=== PATIENT | female | born 1975 | race Caucasian/White ===

== ENCOUNTER 2016-11-29 19:26 | Emergency (ER) | payer MEDICARE, OTHER ==
[2016-11-29] MEDS ORDERED: ONDANSETRON HCL/PF 4 MG/ 2ML VIAL IVP ONE (19:40)
[2016-11-29] MEDS ORDERED: HALOPERIDOL LACTATE 5 MG/ML VIAL IM ONE (19:40)
[2016-11-29] MEDS ORDERED: KETOROLAC TROMETHAMINE 30 MG/1ML VIAL IVP ONE (19:40)
[2016-11-29] MEDS ORDERED: 0.9 % SODIUM CHLORIDE 1,000 ML IV ONE (19:49)
[2016-11-29] MEDS ORDERED: 0.9 % SODIUM CHLORIDE 1,000 ML IV SCH (20:00)
[2016-11-29 22:43] VITALS: BP 122/79
--- NOTE | 2016-11-30 04:15 | ED Physician Documentation ---
Headache - HISTORIAN Historian: patient - HPI Stated Complaint: Severe HIGH Chief Complaint: Headache Additional Information: x 1 day, photo and phonosensativity, known migraines, similar pain Onset: days ago (1) Timing: abrupt New Gradual Onset: Yes Exposure To: none Severity: severe Quality: similar to previous, pain, throbbing Associated Symptoms: sensitivity to light Preceding Symptoms: denies: visual disturbance, scotoma Exacerbated By: light, noise - ROS NEURO/PSYCH: denies: confusion, anxiety, depression, fainting EYES/ENT: denies: sore throat, difficulty swallowing, sinus pain, drainage CVS/RESP: none GI/: denies: abdominal pain, diarrhea, problems urinating, incontinence MS/SKIN/LYMPH: denies: muscle aches, back pain, rash, skin lesions, swollen glands all systems neg except as marked: Yes - PAST HX Medical History: other (breast cancer) Surgical History: no surgical history Immunizations: referred to PCP Allergies/Adverse Reactions: Allergies Allergy/AdvReac Type Severity Reaction Status Date / Time bupropion HCl Allergy Verified 11/29/16 20:33 [From Wellbutrin] buspirone HCl [From BuSpar] Allergy Verified 11/29/16 20:33 Penicillins Allergy Verified 11/29/16 20:33 pregabalin [From Lyrica] Allergy Verified 11/29/16 20:33 Home Medications: Ambulatory Orders Medication Instructions Recorded Dexamethasone [Decadron] 1 tab PO DIRECTED 08/19/16 Hydrocodone/Acetaminophen 1 tab PO DIRECTED 08/19/16 [Hydrocodon-Acetaminophen 5-325] LORazepam [Ativan] 0.5 mg PO Q4H 08/19/16 Loratadine [Claritin] 10 mg PO D 08/19/16 Gabapentin 11/29/16 - SOCIAL HX Smoking History: cigarettes Alcohol Use: none Drug Use: none - Family HX Family History: none - VITAL SIGNS Vital Signs: Vital Signs Temp Pulse Resp BP Pulse Ox 97.5 F L 80 18 122/79 98 11/29/16 21:20 11/29/16 21:20 11/29/16 21:20 11/29/16 21:20 11/29/16 19:27 - REVIEWED ASSESSMENTS Nursing Assessment Reviewed: Yes Vitals Reviewed: Yes Progress - Results/Orders Results/Orders: no testing ordered - Progress Progress: Pt. given 10 mg Haldol im, 30 mg toradol ivp, 1 liter NS in ER. Critical Care Note - Critical Care Note Total Time (mins): 0 ED Results Lab/Radiology - Lab Results Lab Results: none taken - Radiology Radiology Impressions: none taken - Orders Orders: ED Orders Category Date Time Status Place Saline Lock/IV Now Care 11/29/16 19:40 Active 0.9 % Sodium Chloride [Normal Saline] 1,000 ml Med 11/29/16 20:00 Discontinued IV .Q1H 0.9 % Sodium Chloride [Normal Saline] 1,000 ml Med 11/29/16 19:49 Discontinued IV .STK-MED Haloperidol Lactate [Haldol] Med 11/29/16 19:40 Discontinued 10 mg IM NOW ONE Ketorolac Tromethamine [Toradol] Med 11/29/16 19:40 Discontinued 30 mg IVP NOW ONE Ondansetron HCl/Pf [Zofran 4 mg/2 ml] Med 11/29/16 19:40 Discontinued 8 mg IVP NOW ONE Headache Physical Exam - EXAM General Appearance: moderate distress EENT: no facial swelling, eyes nml inspection, PERRL, photophobia, nml ENT, pharynx nml. No: tender temporal artery, pain over sinuses Neck: normal inspection, thyroid normal, supple Respiratory: no resp distress, chest non-tender, breath sounds normal CVS: reg. rate & rhythm, heart sounds nml Abdomen: non-tender, no organomegaly, nml bowel sounds, no distention Skin: color nml, no rash Extremitites: non-tender, normal range of motion, no evidence of injury, no edema - NEURO/PSYCH Higher Functions: alert, oriented x3 Cranial: nml as tested, no evidence of acute CVA Cerebellar: nml as tested Sensorimotor: motor nml, sensation nml Discharge Clincal Impression: Migraine Qualifiers: Migraine type: unspecified Status migrainosus presence: without status migrainosus Intractability: intractable Qualified Code(s): G43.919 - Migraine, unspecified, intractable, without status migrainosus Referrals: Primary Doctor,No [Primary Care Provider] - 2 Days Home Medications: Ambulatory Orders Dexamethasone [Decadron] 1 tab PO DIRECTED 08/19/16 Hydrocodone/Acetaminophen [Hydrocodon-Acetaminophen 5-325] 1 tab PO DIRECTED 08/19/16 LORazepam [Ativan] 0.5 mg PO Q4H 08/19/16 Loratadine [Claritin] 10 mg PO D 08/19/16 Gabapentin 11/29/16 Comments: discharged home in stable and vastly improved condition with script for fioricet 1 p.o. qid prn headache, #10 no refill Condition: Stable Disposition: 01 HOME, SELF-CARE Decision to Admit: NO Decision Time: 21:50
== END 2016-11-29 21:20 | disposition home or self-care (01) ==
LOC: ED 19:26
DX: G43.919 Migraine, unspecified, intractable, without status migrainosus (principal)
CPT/HCPCS: J1630; J1885; J2405; J7030; 96372; 96374; 96375; 99284; S1016

== ENCOUNTER 2017-02-14 09:25 | Outpatient (CLI) | payer MEDICARE, OTHER ==
[2017-02-15 07:51] LABS: ADENOVIRUS F 40/41 Not Detected (Not Detected); ASTROVIRUS Not Detected (Not Detected); C. DIFFICILE (TOXIN A/B) Not Detected (Not Detected); CRYPTOSPORIDIUM Not Detected (Not Detected); CYCLOSPORA CAYETANENSIS Not Detected (Not Detected); ENTAMOEBA HISTOLYTICA Not Detected (Not Detected); GIARDIA LAMBLIA Not Detected (Not Detected); ROTAVIRUS A Not Detected (Not Detected); SAPOVIRUS Not Detected (Not Detected); VIBRIO CHOLERAE Not Detected (Not Detected)
== END 2017-02-14 09:26 ==
LOC: LAB 09:25
PROVIDERS: ATTEND Family Medicine
DX: R19.7 Diarrhea, unspecified (principal)
CPT/HCPCS: 87507

== ENCOUNTER 2017-12-20 14:34 | Emergency (ER) | payer MEDICARE, OTHER ==
[2017-12-20] MEDS: ASPIRIN 81 MG CHEW TAB PO ONE (14:52)
[2017-12-20 15:00] LABS: EOSINOPHILS % 5.7 % (0.0-6.8); MEAN CORPUSCULAR HEMOGLOBIN 29.7 pg (28.0-34.0); MEAN CORPUSCULAR VOLUME 87.4 fl (80.0-100.0); MONOCYTES % 5.9 % (0.0-11.0); NEUTROPHILS # 3.2 # k/uL (1.4-7.7)
[2017-12-20 15:20] LABS: eGFR (African) > 60; eGFR (Non-African) > 60
--- NOTE | 2017-12-20 17:28 | ED Physician Documentation ---
Neck Injury/Pain - HISTORIAN Historian: patient - HPI Stated Complaint: Shoulder Pain Radiating to Neck Chief Complaint: Neck Pain Onset: days ago (2-3) Duration: continues in ED Recent Injury: No Where: home Other Injuries: other (none) Severity: moderate Quality: sharp Associated Symptoms: fever, chills, other (cough) Exacerbated By: nothing Relieved By: nothing Further Comments: no - ROS NEURO/PSYCH: denies: difficulty with speech, anxiety, depression EYES/ENT: none CVS/RESP: chest pain CONST: no problems GI/: nausea MS/SKIN/LYMPH: none - PAST HX Past History: other (breastca) Surgeries/Procedures: other (mastectomy) Allergies/Adverse Reactions: Allergies Allergy/AdvReac Type Severity Reaction Status Date / Time bupropion HCl Allergy Verified 12/20/17 14:50 [From Wellbutrin] buspirone HCl [From BuSpar] Allergy Verified 12/20/17 14:50 clindamycin Allergy Verified 12/20/17 14:50 Penicillins Allergy Verified 12/20/17 14:50 pregabalin [From Lyrica] Allergy Verified 12/20/17 14:50 Home Medications: Ambulatory Orders Medication Instructions Recorded Hydrocodone/Acetaminophen 1 tab PO DIRECTED 08/19/16 [Hydrocodon-Acetaminophen 5-325] LORazepam [Ativan] 0.5 mg PO Q4H 08/19/16 Loratadine [Claritin] 10 mg PO D 08/19/16 Gabapentin 11/29/16 - SOCIAL HX Smoking History: non-smoker Alcohol Use: none Drug Use: none - FAMILY HX Family History: no significant history - VITAL SIGNS Vital Signs: Vital Signs Temp Pulse Resp BP Pulse Ox 97 F L 84 16 115/74 97 12/20/17 14:35 12/20/17 18:28 12/20/17 18:28 12/20/17 18:28 12/20/17 18:28 - REVIEWED ASSESSMENT Nursing Assessment Reviewed: Yes Vitals Reviewed: Yes Progress - Results/Orders Results/Orders: trop, cmp, cbc, ekg ordered - Progress Progress: pt. given norflex 30 mg ivp, rocephin 1 gram im, toradol 30 mg iv, asa 325 mg p.o. in er Critical Care Note - Critical Care Note Total Time (mins): 0 ED Results Lab/Radiology - Lab Results Lab Results: Lab Results 12/20/17 12/20/17 12/20/17 14:55 14:55 14:55 WBC 4.90 K/ul K/ul (4.00-12.00) RBC 5.03 M/ul M/ul (3.90-5.20) Hgb 14.9 g/dL g/dL (12.0-16.0) Hct 44.0 % % (34.5-46.5) MCV 87.4 fl fl (80.0-100.0) MCH 29.7 pg pg (28.0-34.0) MCHC 34.0 g/dL g/dL (30.0-36.0) RDW 13.0 % % (11.3-14.3) Plt Count 170 K/mm3 K/mm3 (130-400) Neut % (Auto) 66.1 % % (39.0-79.0) Lymph % (Auto) 19.1 % % (16.0-50.0) Sebastian % (Auto) 5.9 % % (0.0-11.0) Eos % (Auto) 5.7 % % (0.0-6.8) Baso % (Auto) 1.0 (0.0-1.5) Neut # (Auto) 3.2 # k/uL # k/uL (1.4-7.7) Lymph # (Auto) 0.9 # k/uL # k/uL (0.6-4.0) Sebastian # (Auto) 0.3 # k/uL # k/uL (0.0-0.9) Eos # (Auto) 0.3 # k/uL # k/uL (0.0-0.6) Baso # (Auto) 0.0 # k/uL # k/uL (0.0-0.5) Reactive Lymphs % 2.3 % % (0.0-5.0) Reactive Lymphs # 0.1 # k/uL # k/uL (0.0-0.8) Sodium 141 mmol/L mmol/L (136-145) Potassium 3.8 mmol/L mmol/L (3.5-5.1) Chloride 103 mmol/L mmol/L (98-107) Carbon Dioxide 27 mmol/L mmol/L (22-30) BUN 8 mg/dL mg/dL (7-17) Creatinine 0.90 mg/dL mg/dL (0.52-1.04) Estimated Creat Clear 127 Est GFR ( Amer) > 60 (60 - ) Est GFR (Non-Af Amer) > 60 (60 - ) Glucose 119 mg/dL H mg/dL (74-106) Calcium 8.8 mg/dL mg/dL (8.4-10.2) Total Bilirubin 0.6 mg/dL mg/dL (0.2-1.3) AST 24 U/L U/L (15-46) ALT 37 U/L U/L (13-69) Alkaline Phosphatase 95 U/L U/L (38-126) Troponin I < 0.03 ng/mL L ng/mL (0.03-0.06) Total Protein 6.9 g/dL g/dL (6.3-8.2) Albumin 4.0 g/dL g/dL (3.5-5.0) - Radiology Radiology Impressions: ct chest positive left upper lob infiltrate - Orders Orders: ED Orders Category Date Time Status Continuous EKG monitoring Q30M Care 12/20/17 14:51 Active Continuous Pulse Oximetry Q30M Care 12/20/17 14:[address] IV Lock 1T Care 12/20/17 14:[address] C-SPINE W/O CONTRAST Stat Exams 12/20/[address] CHEST W/O CONTRAST Stat Exams 12/20/17 Completed CBC/PLATELET/DIFF Routine Lab 12/20/17 14:55 Completed CMP Routine Lab 12/20/17 14:55 Completed TROPONIN I (cTnI) Stat Lab 12/20/17 14:55 Completed Aspirin Med 12/20/17 14:51 Discontinued 324 mg PO NOW ONE Ketorolac Tromethamine [Toradol] Med 12/20/17 17:13 Discontinued 30 mg IVP NOW ONE Lidocaine 1% 5ml(IM or SUTURE) [Xylocaine] Med 12/20/17 17:38 Discontinued 50 mg .ROUTE .STK-MED ONE Orphenadrine Citrate [Norflex] Med 12/20/17 17:15 Discontinued 30 mg IV NOW ONE cefTRIAXone SODIUM [Rocephin] Med 12/20/17 17:38 Discontinued 1 gm .ROUTE .STK-MED ONE cefTRIAXone SODIUM [Rocephin] Med 12/20/17 18:00 Discontinued 1 gm IM QD EKG WITH COMPARISON Stat Ther 12/20/17 14:51 Ordered Neck Injury/Pain - Physical Exam General Appearance: alert, mild distress EENT: nml ENT inspection, pharynx nml Neck: thyroid nml, other (tenderness left sided scalene muscles, anterior pectoral muscle and superior trapezius muscle) Nexus Criteria: Nexus criteria neg Back: muscle spasm (upper trapezius left and pectoral left) Respiratory: tenderness (over left pectoral area), decreased breath sounds ( left upper lung miller) CVS: heart sounds nml, bilateral pulses nml Abdomen: non-tender, no organomegaly, nml bowel sounds, no distention Skin: warm/dry, normal color Extremities: non-tender, normal range of motion, no evidence of injury, no edema Neuro/Psych: oriented x3, CN's nml as tested, sensation nml, motor nml, mood/ affect nml, coal 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 daily, Parafon Forte DSC 500 mg 1 p.o. qid and Meloxicam 1 p.o. bid. Condition: Stable Disposition: 01 HOME, SELF-CARE Decision to Admit: NO Decision Time: 17:28
[2017-12-20] MEDS ORDERED: Lidocaine 1% 5ml(IM or SUTURE)(PAIN CLINIC) ONE (17:38)
[2017-12-20] MEDS ORDERED: cefTRIAXone SODIUM 1 GM VIAL ONE (17:38)
[2017-12-20] MEDS: ORPHENADRINE CITRATE 60 MG/2ML IV ONE (17:44)
[2017-12-20] MEDS: KETOROLAC TROMETHAMINE 30 MG/1ML VIAL IVP ONE (17:44)
[2017-12-20] MEDS: cefTRIAXone SODIUM 1 GM VIAL IM SCH (17:44)
[2017-12-20 18:38] VITALS: BP 115/74
--- NOTE | 2017-12-20 19:07 | Diagnostic Imaging Report ---
SANA ESCALANTE [facility] [address] [facility] [address] [place], [place]. [address] Report Submission Date: Dec 20, 2017 4:35:23 PM HR ANALYST Patient Study Name: BERNARDA JACKSON Date: Dec 20, 2017 3:23:52 PM HR ANALYST Modality Type: CT\SR Gender: F Description: CT CHEST W/O C : 79 Institution: [facility] Physician: SANA ESCALANTE Examination: CT chest History: CT CHEST, NECK PAIN INTO SHOULDER AND CHEST SINCE 2016, POST MASTECTOMY SURGERY, WORSENING PAIN X1 WEEK, HX OF BREAST CANCER (Hx) / CHEST PAIN (DICOM Hx) Comparison exams: None available Technique: CT chest without contrast protocol Findings: Left greater than right apical parenchymal scarring with probable left apical infiltrate/consolidation. Posterior dependent atelectasis. Remaining lung pleura, parenchyma, and pulmonary vascularity are without irregularity. Anterior mediastinum and kathy are without gross mass or pathologic adenopathy: though sensitivity is reduced on a noncontrast exam. Thoracic aorta without evidence for aneurysm or peripheral atherosclerotic disease. Cardiac silhouette not enlarged. No pericardial effusion. Lower neck structures, upper abdominal organs, and osseous structures are without gross abnormality. Bilateral breast implants. Right-sided christa cath. Impression: Biapical parenchymal scarring with possible left apical infiltrate/ consolidation. No effusion. Electronically signed on Dec 20, 2017 4:35:23 PM HR ANALYST by: Crow CASTANO
--- NOTE | 2017-12-20 19:08 | Diagnostic Imaging Report ---
SANA ESCALANTE [address] [facility] [address] [place] [address]. [id number] Report Submission Date: Dec 20, 2017 4:16:46 PM BILLING CHECKER Patient Study Name: BERNARDA JACKSON Date: Dec 20, 2017 3:19:25 PM BILLING CHECKER Modality Type: CT\SR Gender: F Description: : 79 Institution: Physician: SANA ESCALANTE Examination: CT cervical spine History: CT C-SPINE, NECK PAIN INTO SHOULDER AND CHEST SINCE 2016, POST MASTECTOMY SURGERY, WORSENING PAIN X1 WEEK, HX OF BREAST CANCER (Hx) / NECK PAIN W/ HX OF BREAST CANCER (DICOM Hx) Comparison exams: None provided Technique: CT cervical spine axial imaging with sagittal and coronal reconstruction Findings: Sagittal reconstruction demonstrates normal height and alignment the cervical vertebral bodies. No anterior compression deformity. Few scattered osteophytes. Disc space narrowing C4/C5 and C5/C6. Coronal reconstruction does not demonstrate locked or perched facets. Mild atlantoaxial degenerative changes. Streak artifact from dental hardware. Apical parenchymal scarring. Axial imaging obtained from the skull base through T1. Lamina and pedicles are intact. No ossific density within the central canal. Mild scattered facet degenerative changes. Minimal narrowing of central canal and neural foramen at C4/C5 and C5/C6. No prevertebral soft tissue abnormality. Impression: Mid cervical degenerative changes. No evidence for compression fracture. If patient is experiencing neurologic symptoms, consider obtaining MRI to further evaluate. Electronically signed on Dec 20, 2017 4:16:46 PM BILLING CHECKER by: Crow CASTANO
== END 2017-12-20 17:52 | disposition home or self-care (01) ==
LOC: ED 14:34
DX: J18.1 Lobar pneumonia, unspecified organism (principal); M25.512 Pain in left shoulder
CPT/HCPCS: 71250; 72125; 80053; 84484; 85025; 93005; J0696; J1885; J2360; 96372; 96375; 99283; S1016

== ENCOUNTER 2019-08-18 15:13 | Emergency (ER) | payer MEDICARE, OTHER ==
--- NOTE | 2019-08-18 15:31 | ED Physician Documentation ---
General Adult - HISTORIAN Historian: patient - HPI Stated Complaint: mid back pain Chief Complaint: General Adult Additional Information: Patient presents to ED with a 7 day history of mid back pain after putting in an air filter in her car. Patient states the pain is sharp, stabbing, 7/10, constant. She has a history of breast cancer, s/p double mastectomy, chemo. Currently she is on maintenance therapy for her breast cancer. Last scan was 2 years ago. She also has history of spine surgery in area of pain. Onset: days ago (7) Timing: still present Severity: severe - ROS CONST: no problems EYES/ENT: none CVS/RESP: denies: chest pain, shortness of breath GI/: nausea. denies: abdominal pain, vomiting MS/SKIN/LYMPH: back pain NEURO/PSYCH: denies: headache - PAST HX Past History: none Other History: none Surgeries/Procedures: none Allergies/Adverse Reactions: Allergies Allergy/AdvReac Type Severity Reaction Status Date / Time bupropion HCl Allergy Verified 08/18/19 15:39 [From Wellbutrin] buspirone HCl [From BuSpar] Allergy Verified 08/18/19 15:39 clindamycin Allergy Verified 08/18/19 15:39 Penicillins Allergy Verified 08/18/19 15:39 pregabalin [From Lyrica] Allergy Verified 08/18/19 15:39 Home Medications: Ambulatory Orders Medication Instructions Recorded Aripiprazole [Abilify] 1 tab PO DAILY 08/18/19 Baclofen 10 mg PO Q12 PRN #30 tablet 08/18/19 Duloxetine HCl [Cymbalta] 1 tab PO DAILY 08/18/19 Hydrocodone/Acetaminophen [Cordova 1 each PO Q8 PRN #15 tablet 08/18/19 5-325 Tablet] Methylprednisolone [Medrol] 4 mg PO DIRECTED #1 tab.ds.pk 08/18/19 Prazosin HCl [Minipress] 1 tab PO DAILY 08/18/19 - SOCIAL HX Smoking History: cigarettes, greater than 1 pack/day Alcohol Use: none Drug Use: none - FAMILY HX Family History: No - VITAL SIGNS Vital Signs: Vital Signs Temp Pulse Resp BP Pulse Ox 115/74 12/20/17 18:28 - REVIEWED ASSESSMENTS Nursing Assessment Reviewed: Yes Vitals Reviewed: Yes ED Results Lab/Radiology - Radiology Radiology Impressions: Report Submission Date: Aug 18, 2019 4:26:54 PM CDT Patient Study Name: BERNARDA JOHANSEN Date: Aug 18, 2019 3:45:27 PM CDT Modality Type: CT\SR Gender: F Description: CT T-SPINE W/O CON : 79 Institution: [facility] Physician: ELINA CRENSHAW CT thoracic spine without contrast History: Mid back pain. History of breast cancer. Technique: Helically acquired images were obtained through the thoracic spine without contrast. Findings: No osseous abnormalities are noted. Vertebral body height and intervertebral disc space height is maintained throughout. No lytic or sclerotic lesions are identified. The central canal is widely patent. On these nonenhanced images, which limits solid organ evaluation, visualized structures within the upper abdomen are unremarkable. There is no pericardial or pleural effusion. No mediastinal or hilar lymphadenopathy is noted. Mild posterior dependent bibasilar atelectasis is present bilaterally. There is a small focal region of airspace disease at the left upper lobe. Impression: No osseous abnormality of the thoracic spine is noted. Small, focal region of airspace disease at the left upper lobe. Mild bilateral posterior dependent atelectasis. Electronically signed on Aug 18, 2019 4:26:54 PM CDT by: Tonja Solitario General Adult Physical Exam - PHYSICAL EXAM GENERAL APPEARANCE: no distress EENT: STEPHY NECK: normal inspection, supple RESPIRATORY: no resp distress, chest non-tender, breath sounds normal CVS: reg rate & rhythm, heart sounds normal ABDOMEN: soft, normal bowel sounds, non-tender BACK: normal inspection, other (vertebral point tenderness T3-T6) SKIN: warm/dry EXTREMITIES: non-tender, no evidence of injury NEURO: oriented X3, motor nml, mood/affect nml Discharge Clincal Impression: Mid-back pain, acute Prescriptions: Baclofen 10 mg PO Q12 PRN #30 tablet PRN Reason: back pain/muscle spasm Hydrocodone/Acetaminophen [Cordova 5-325 Tablet] 1 each PO Q8 PRN #15 tablet PRN Reason: back pain Methylprednisolone [Medrol] 4 mg PO DIRECTED #1 tab.ds.pk Referrals: Claudia Whitaker MD [Primary Care Provider] - 2 Days Additional Instructions: 1. Start Medrol dose pack tomorrow 2. Baclofen every 12 hours as needed for pain 3. Cordova every 8 hours as needed for break through pain 4. Follow up with PCP within [address] Edin Quiroga's office will be contacting you with appointment information. A referral to pain management has also been sent 6. Return to ER for new or worsening symptoms Condition: Stable Disposition: 01 HOME, SELF-CARE Decision to Admit: NO Date of Decison to Admit: 08/18/19 Decision Time: 16:42
[2019-08-18 15:39] VITALS: BP 109/74
[2019-08-18] MEDS: methylPREDNISolone SOD SUCC 125 MG/2 ML VIAL IM ONE (15:45)
[2019-08-18] MEDS: KETOROLAC TROMETHAMINE 60 MG/2 ML VIAL IM ONE (15:46)
--- NOTE | 2019-08-18 16:30 | Diagnostic Imaging Report ---
PATIENT MR#: [id number] PATIENT PATIENT NAME: BERNARDA JACKSON DATE OF : 1975 REFERRING PHYSICIAN: Carleen Peters EXAM DATE: 08/18/2019 ACCESSION NUMBER: [id number] EXAM DESCRIPTION: CT T-SPINE W/O CON ADDENDUM: Addendum: A prior chest CT from December 20, 2017 is now available for comparison. The described region of airspace disease at the left upper lobe has mildly worsened since December 20 18. In this patient with a history of breast cancer, this finding could possibly be treatment related and due to radiatio n. Depending upon the clinical scenario, PET-CT may be helpful for further assessment of this region given the mild wor sening/increase since December 2017. thoracic spine without contrast History: Mid back pain. History of breast cancer. Technique: Helically acquired images were obtained through the thoracic spine without contrast. Findings: No osseous abnormalities are noted. Vertebral body height and intervertebral disc space h eight is maintained throughout. No lytic or sclerotic lesions are identified. The central canal is widely patent. On t hese nonenhanced images, which limits solid organ evaluation, visualized structures within the upper abdomen are unrem arkable. There is no pericardial or pleural effusion. No mediastinal or hilar lymphadenopathy is noted. Mild posterior dependent bibasilar atelectasis is present bilaterally. There is a small focal region of airspace disease at the left upper lobe. Impression: No osseous abnormality of the thoracic spine is noted. Small, focal region of airspace disease at the left upper lobe. Mild bilateral posterior dependent atelectasis. Read by: Dr. Tonja Solitario Transcribed by: Transcribed Date: Electronically signed by: Dr. Tonja Solitario Date signed: 08/18/2019 4:31:49 PM
== END 2019-08-18 16:50 | disposition home or self-care (01) ==
LOC: ED 15:13
DX: M54.9 Dorsalgia, unspecified (principal)
CPT/HCPCS: 72128; 96372; 99284; J1885; J2930